=== PATIENT | female | born 1965 | race Caucasian/White ===

== ENCOUNTER 2021-06-10 14:07 | Inpatient (IN) | payer BC ==
[~2021-06-10] VITALS: Ht 149.9 cm; Wt 100.0 kg
[2021-06-10] MEDS ORDERED: acetaminophen 325mg tablet PO ONE (15:50)
[2021-06-10 16:32] LABS: BASOPHILS % (AUTO) 0.3 % (0-1); EOSINOPHILS % (AUTO) 0.1 % (0-6); HEMOGLOBIN 15.2 g/dl (12.0-16.0); LYMPHOCYTES # (AUTO) 1.1 X10'3 (1.1-4.8); LYMPHOCYTES % (AUTO) 13.1 % (21-51); MEAN CORPUSCULAR HEMOGLOBIN 28.8 PG (27.0-31.0); MEAN CORPUSCULAR HGB CONC 33.9 g/dL (33.0-36.5); MEAN CORPUSCULAR VOLUME 85.2 FL (78-98); MEAN PLATELET VOLUME 7.4 FL (7.4-10.4); MONOCYTES # (AUTO) 0.9 X10'3 (0-0.9); NEUTROPHILS # (AUTO) 6.3 X10'3 (1.8-7.7); NEUTROPHILS % (AUTO) 75.5 % (42-75); PLATELET COUNT 274 X10'3 (140-440); RED BLOOD COUNT 5.29 X10'6 (4.20-5.60); WHITE BLOOD COUNT 8.3 X10'3 (4.5-11.0)
[2021-06-10 16:45] LABS: D-DIMER 0.53 MG/L FEU (0-0.50)
[2021-06-10 16:54] LABS: ALANINE AMINOTRANSFERASE 25 U/L (12-78); ALBUMIN 3.2 G/DL (3.4-5.0); ALBUMIN/GLOBULIN RATIO 0.6 (1.1-1.5); ALKALINE PHOSPHATASE 111 IU/L (46-116); ANION GAP 8 (8-16); ASPARTATE AMINO TRANSFERASE 26 U/L (10-37); BILIRUBIN,TOTAL 0.6 MG/DL (0.1-1.0); BLOOD UREA NITROGEN 11 MG/DL (7-18); CALCIUM 8.4 MG/DL (8.5-10.1); CHLORIDE 102 MMOL/L (99-107); CREATININE 0.61 MG/DL (0.40-0.90); GLUCOSE 127 MG/DL (70-104); POTASSIUM 3.5 MMOL/L (3.5-5.1); SODIUM 139 MMOL/L (135-145); TOTAL CARBON DIOXIDE 28.7 MMOL/L (24-32); TOTAL PROTEIN 8.3 G/DL (6.4-8.2); eGFR > 90 ML/MIN
[2021-06-10 17:00] LABS: C-REACTIVE PROTEIN 5.57 MG/DL (0.0-0.5)
[2021-06-10 17:12] LABS: LACTATE DEHYDROGENASE 328 U/L (81-234)
[2021-06-10] MEDS ORDERED: REMDESIVIR INJ 200 MG in normal saline 100ml IV soln 60 ML IV ONE (18:10)
[2021-06-10] MEDS ORDERED: dexamethasone 4mg/ml inj IV ONE (18:45)
[2021-06-10] MEDS ORDERED: RAMI10CA69 PO (20:50)
[2021-06-10] MEDS ORDERED: PIOG30TA71 PO (20:50)
[2021-06-10] MEDS ORDERED: temazepam 15mg capsule PO PRN (21:00)
[2021-06-10] MEDS ORDERED: acetaminophen 650mg rectal suppository RC PRN (22:05)
[2021-06-10] MEDS ORDERED: diphenhydrAMINE 25mg capsule PO PRN (22:05)
[2021-06-10] MEDS ORDERED: HYDROcodone/acetaminophen 5mg/325mg tablet PO PRN (22:05)
[2021-06-10] MEDS ORDERED: bisacodyl 10mg suppository rectal RC PRN (22:05)
[2021-06-10] MEDS ORDERED: diphenhydrAMINE 50 mg/ml inj IV PRN (22:05)
[2021-06-10] MEDS ORDERED: morphine 2 MG/ML inj. syringe IV PRN ×2 (22:05)
[2021-06-10] MEDS ORDERED: magnesium hydroxide 30ml (MOM) UD suspension PO PRN (22:05)
[2021-06-10] MEDS ORDERED: normal saline 1000ml 1,000 ML IV SCH (22:05)
[2021-06-10] MEDS ORDERED: ondansetron/PF 4mg/2ml inj IV PRN (22:05)
[2021-06-10] MEDS ORDERED: ondansetron 4mg rapidly disintigrating tab PO PRN (22:05)
[2021-06-10] MEDS ORDERED: HYDROcodone/acetaminophen 10/325mg tab PO PRN (22:05)
[2021-06-10] MEDS ORDERED: acetaminophen 325mg tablet PO PRN ×2 (22:05)
[2021-06-10] MEDS ORDERED: mag hydrox/Alum hydrox/simeth 30ml oral suspension PO PRN (22:05)
[2021-06-10] MEDS ORDERED: HYDROmorphone inj. 0.5 MG/0.5 ML DISP.SYRIN IV PRN (22:05)
[2021-06-10] MEDS ORDERED: dextrose 50%-water 50ml dispensing syringe IV PRN ×2 (22:15)
[2021-06-10] MEDS ORDERED: ALBUTEROL INHALER 1 PUFF/90 MCG INHALER IH PRN (22:15)
[2021-06-10] MEDS ORDERED: dextrose ORAL solution 15 GM/59 ML bottle PO PRN ×2 (22:15)
[2021-06-10] MEDS ORDERED: MESSAGE TO PHARMACY PO ONE (22:15)
[2021-06-10] MEDS ORDERED: glucagon, human recombinant 1mg kit SUBCUT PRN (22:15)
[2021-06-10 22:43] LABS: CREATINE KINASE 89 U/L (26-192); LIPASE 89 U/L (73-393); MAGNESIUM 2.2 MG/DL (1.5-2.4); PHOSPHORUS 3.1 MG/DL (2.3-4.5); TROPONIN I < 0.04 NG/ML (0.0-0.05)
[2021-06-10] MEDS ORDERED: METF-436 PO (23:36)
[2021-06-10] MEDS ORDERED: ATOR20TA66 PO (23:36)
[2021-06-11 05:59] LABS: BASOPHILS % (AUTO) 0.4 % (0-1); EOSINOPHILS % (AUTO) 0 % (0-6); HEMATOCRIT 44.5 % (35.0-45.0); HEMOGLOBIN 14.7 g/dl (12.0-16.0); LYMPHOCYTES # (AUTO) 0.6 X10'3 (1.1-4.8); MEAN CORPUSCULAR HEMOGLOBIN 28.8 PG (27.0-31.0); MEAN CORPUSCULAR HGB CONC 33.1 g/dL (33.0-36.5); MEAN PLATELET VOLUME 7.5 FL (7.4-10.4); MONOCYTES # (AUTO) 0.2 X10'3 (0-0.9); MONOCYTES % (AUTO) 4.5 % (2-12); NEUTROPHILS # (AUTO) 3.7 X10'3 (1.8-7.7); NEUTROPHILS % (AUTO) 81.1 % (42-75); PLATELET COUNT 284 X10'3 (140-440); RED BLOOD COUNT 5.11 X10'6 (4.20-5.60); RED CELL DISTRIBUTION WIDTH 14.2 % (11.5-14.5); WHITE BLOOD COUNT 4.6 X10'3 (4.5-11.0)
[2021-06-11 06:04] LABS: PARTIAL THROMBOPLASTIN TIME 29 SECONDS (22-32)
[2021-06-11 06:08] LABS: ALANINE AMINOTRANSFERASE 17 U/L (12-78); ALBUMIN 2.6 G/DL (3.4-5.0); ALBUMIN/GLOBULIN RATIO 0.6 (1.1-1.5); ALKALINE PHOSPHATASE 95 IU/L (46-116); ANION GAP 11 (8-16); ASPARTATE AMINO TRANSFERASE 19 U/L (10-37); BILIRUBIN,TOTAL 0.5 MG/DL (0.1-1.0); BLOOD UREA NITROGEN 13 MG/DL (7-18); BUN/CREATININE RATIO 23.6 (6.6-38.0); CALCIUM 6.9 MG/DL (8.5-10.1); CHLORIDE 107 MMOL/L (99-107); CHOL/HDL RATIO 3.5 (0.00-4.99); CHOLESTEROL 128 MG/DL (0-200); CREATININE 0.55 MG/DL (0.40-0.90); GLUCOSE 152 MG/DL (70-104); HDL CHOLESTEROL 37 MG/DL (35-60); LDL CHOLESTEROL 77 MG/DL (50-100); POTASSIUM 3.6 MMOL/L (3.5-5.1); SODIUM 143 MMOL/L (135-145); TOTAL CARBON DIOXIDE 25.2 MMOL/L (24-32); TOTAL PROTEIN 6.9 G/DL (6.4-8.2); TRIGLYCERIDES 60 MG/DL (20-135); eGFR > 90 ML/MIN
[2021-06-11] MEDS ORDERED: CefTRIAXone/D5W-Rocephin 1gm 50 ML IV SCH (08:00)
[2021-06-11] MEDS: atorvastatin 20mg tablet PO SCH ×2 (08:00→21:58)
[2021-06-11] MEDS ORDERED: azithromycin/NS 500mg/250ml 250 ML IV SCH (08:00)
[2021-06-11] MEDS: DEXAMETHASONE 6 MG TABLET PO SCH ×2 (09:07→21:58)
[2021-06-11] MEDS: pantoprazole 40mg Tablet.DR PO SCH (09:07)
[2021-06-11] MEDS: docusate sod 100mg capsule PO SCH ×2 (09:07→20:00)
[2021-06-11] MEDS: lisinopril 20mg tablet PO SCH (09:08)
[2021-06-11] MEDS: enoxaparin 60mg/0.6ml syringe SUBCUT SCH ×2 (09:08→22:10)
[2021-06-11] MEDS ORDERED: REMDESIVIR INJ 100 MG in normal saline 100ml IV soln 80 ML IV SCH (10:00)
[2021-06-11] MEDS ORDERED: magnesium 4gm in 100ml NS 100 ML IV PRN (10:20)
[2021-06-11] MEDS ORDERED: potassium Cl 20 mEq SR tablet PO PRN ×2 (10:20)
[2021-06-11] MEDS ORDERED: potassium Cl 40MEQ/1/2NS 520ml 520 ML IV PRN (10:20)
[2021-06-11] MEDS ORDERED: magnesium Cl slow-release 64mg tablet PO PRN (10:20)
[2021-06-11] MEDS: insulin Lispro (HumaLOG) vial - multi-dose SQ SCH ×2 (14:27→22:00)
[2021-06-11] MEDS: K and/or MAG REPLACEMENT MC SCH (20:00)
[2021-06-11] MEDS: insulin glargine (Lantus) pen - multi-dose SQ SCH (22:05)
[2021-06-11 23:35] LABS: CLARITY,URINE SLIGHTLY CLOUDY (Clear); COLOR,URINE YELLOW (Yellow); GLUCOSE, URINE 500 mg/dl (Neg); KETONES,URINE 40 mg/dl (Neg); OCCULT BLOOD,URINE NEGATIVE (Neg); PROTEIN,URINE TRACE mg/dl (Neg); UA COLLECTION TYPE CLN CATCH MIDSTREAM
[2021-06-11 23:36] LABS: LEUKOCYTE ESTERASE ,URINE NEGATIVE (Neg); NITRITES, URINE NEGATIVE (Neg); UROBILINOGEN,URINE 0.2 E.U/dL (0.2-1.0)
[2021-06-11 23:37] LABS: BACTERIA,URINE NONE SEEN /HPF (Neg); RBC,URINE 0-2 /HPF (0-2); SQUAMOUS EPITHELIAL CELL,UR FEW /LPF (FEW); WBC,URINE 0-4 /HPF (0-4); YEAST MANY /HPF (NEGATIVE)
[2021-06-12] MEDS: REMDESIVIR INJ 100 MG in normal saline 100ml IV soln 80 ML IV SCH (07:27)
[2021-06-12 07:51] LABS: BASOPHILS # (AUTO) 0.1 X10'3 (0-0.2); BASOPHILS % (AUTO) 0.4 % (0-1); EOSINOPHILS % (AUTO) 0 % (0-6); HEMATOCRIT 44.9 % (35.0-45.0); HEMOGLOBIN 14.5 g/dl (12.0-16.0); LYMPHOCYTES % (AUTO) 7.3 % (21-51); MEAN CORPUSCULAR HEMOGLOBIN 28.7 PG (27.0-31.0); MEAN CORPUSCULAR HGB CONC 32.4 g/dL (33.0-36.5); MEAN CORPUSCULAR VOLUME 88.6 FL (78-98); MEAN PLATELET VOLUME 7.7 FL (7.4-10.4); MONOCYTES % (AUTO) 7.3 % (2-12); NEUTROPHILS # (AUTO) 11.4 X10'3 (1.8-7.7); PLATELET COUNT 281 X10'3 (140-440); RED BLOOD COUNT 5.06 X10'6 (4.20-5.60); RED CELL DISTRIBUTION WIDTH 14.1 % (11.5-14.5); WHITE BLOOD COUNT 13.4 X10'3 (4.5-11.0)
[2021-06-12] MEDS: docusate sod 100mg capsule PO SCH ×2 (07:59→21:37)
[2021-06-12] MEDS: pantoprazole 40mg Tablet.DR PO SCH (07:59)
[2021-06-12] MEDS: K and/or MAG REPLACEMENT MC SCH ×2 (08:00→20:00)
[2021-06-12] MEDS: lisinopril 20mg tablet PO SCH (08:00)
[2021-06-12 10:30] LABS: D-DIMER 0.39 MG/L FEU (0-0.50)
[2021-06-12 10:44] LABS: ALANINE AMINOTRANSFERASE 19 U/L (12-78); ALBUMIN 2.6 G/DL (3.4-5.0); ALBUMIN/GLOBULIN RATIO 0.6 (1.1-1.5); ALKALINE PHOSPHATASE 92 IU/L (46-116); ANION GAP 8 (8-16); ASPARTATE AMINO TRANSFERASE 18 U/L (10-37); BILIRUBIN,TOTAL 0.3 MG/DL (0.1-1.0); BLOOD UREA NITROGEN 16 MG/DL (7-18); BUN/CREATININE RATIO 23.5 (6.6-38.0); C-REACTIVE PROTEIN 2.65 MG/DL (0.0-0.5); CALCIUM 7.8 MG/DL (8.5-10.1); CHLORIDE 106 MMOL/L (99-107); CREATININE 0.68 MG/DL (0.40-0.90); GLUCOSE 243 MG/DL (70-104); MAGNESIUM 2.1 MG/DL (1.5-2.4); PHOSPHORUS 3.3 MG/DL (2.3-4.5); POTASSIUM 4.2 MMOL/L (3.5-5.1); SODIUM 144 MMOL/L (135-145); TOTAL CARBON DIOXIDE 30.2 MMOL/L (24-32); TOTAL PROTEIN 7.2 G/DL (6.4-8.2); eGFR 89 ML/MIN
[2021-06-12] MEDS: DEXAMETHASONE 6 MG TABLET PO SCH ×2 (10:47→21:37)
[2021-06-12] MEDS: enoxaparin 30mg/0.3ml syringe SUBCUT SCH ×2 (10:48→21:42)
[2021-06-12 10:51] LABS: LACTATE DEHYDROGENASE 478 U/L (81-234)
[2021-06-12] MEDS: insulin Lispro (HumaLOG) vial - multi-dose SQ SCH ×2 (14:13→19:45)
--- NOTE | 2021-06-12 15:53 | NUR ---
received report from aimee mtz in [place]
[2021-06-12 18:24] VITALS: BP 111/52
--- NOTE | 2021-06-12 18:24 | NUR ---
GAVE REPORT TO LEONARD NICHOLAS
[2021-06-12] MEDS: insulin glargine (Lantus) pen - multi-dose SQ SCH (21:35)
[2021-06-12 22:00] VITALS: BP 112/60
[2021-06-13 06:00] VITALS: BP 98/51
--- NOTE | 2021-06-13 06:45 | NUR ---
Problems reprioritized. Patient report given, questions answered & plan of care reviewed with LEONARD RODAS.
[2021-06-13 07:57] LABS: BASOPHILS % (AUTO) 0.1 % (0-1); EOSINOPHILS % (AUTO) 0 % (0-6); HEMATOCRIT 42.8 % (35.0-45.0); HEMOGLOBIN 14.1 g/dl (12.0-16.0); LYMPHOCYTES # (AUTO) 1.1 X10'3 (1.1-4.8); LYMPHOCYTES % (AUTO) 6.8 % (21-51); MEAN CORPUSCULAR HEMOGLOBIN 28.6 PG (27.0-31.0); MEAN CORPUSCULAR VOLUME 86.8 FL (78-98); MEAN PLATELET VOLUME 7.7 FL (7.4-10.4); MONOCYTES % (AUTO) 6.3 % (2-12); NEUTROPHILS # (AUTO) 14.1 X10'3 (1.8-7.7); NEUTROPHILS % (AUTO) 86.8 % (42-75); PLATELET COUNT 375 X10'3 (140-440); RED BLOOD COUNT 4.93 X10'6 (4.20-5.60); WHITE BLOOD COUNT 16.2 X10'3 (4.5-11.0)
[2021-06-13] MEDS: K and/or MAG REPLACEMENT MC SCH ×2 (08:00→20:00)
[2021-06-13] MEDS: lisinopril 20mg tablet PO SCH (08:00)
[2021-06-13 08:06] LABS: ALANINE AMINOTRANSFERASE 14 U/L (12-78); ALBUMIN 2.6 G/DL (3.4-5.0); ALBUMIN/GLOBULIN RATIO 0.6 (1.1-1.5); ALKALINE PHOSPHATASE 97 IU/L (46-116); ANION GAP 7 (8-16); ASPARTATE AMINO TRANSFERASE 13 U/L (10-37); BILIRUBIN,TOTAL 0.3 MG/DL (0.1-1.0); BLOOD UREA NITROGEN 19 MG/DL (7-18); BUN/CREATININE RATIO 26.4 (6.6-38.0); C-REACTIVE PROTEIN 1.38 MG/DL (0.0-0.5); CHLORIDE 111 MMOL/L (99-107); CREATININE 0.72 MG/DL (0.40-0.90); GLUCOSE 183 MG/DL (70-104); LACTATE DEHYDROGENASE 268 U/L (81-234); MAGNESIUM 2.5 MG/DL (1.5-2.4); PHOSPHORUS 4.2 MG/DL (2.3-4.5); POTASSIUM 3.7 MMOL/L (3.5-5.1); SODIUM 149 MMOL/L (135-145); TOTAL CARBON DIOXIDE 30.7 MMOL/L (24-32); TOTAL PROTEIN 6.9 G/DL (6.4-8.2); eGFR 83 ML/MIN
[2021-06-13 08:34] LABS: D-DIMER 0.25 MG/L FEU (0-0.50)
[2021-06-13] MEDS: pantoprazole 40mg Tablet.DR PO SCH (09:28)
[2021-06-13] MEDS: atorvastatin 20mg tablet PO SCH (09:29)
[2021-06-13] MEDS: docusate sod 100mg capsule PO SCH ×2 (09:29→20:00)
[2021-06-13] MEDS: DEXAMETHASONE 6 MG TABLET PO SCH ×2 (09:29→20:15)
[2021-06-13] MEDS: enoxaparin 30mg/0.3ml syringe SUBCUT SCH ×2 (09:30→20:16)
[2021-06-13] MEDS: insulin Lispro (HumaLOG) vial - multi-dose SQ SCH ×3 (09:39→20:13)
[2021-06-13] MEDS: REMDESIVIR INJ 100 MG in normal saline 100ml IV soln 80 ML IV SCH (09:41)
[2021-06-13 10:00] VITALS: BP 85/35
--- NOTE | 2021-06-13 10:39 | NUR ---
PAGER ID: [phone] MESSAGE: Pamela KIRKLAND [phone] COVID UNIT PT. BP 85/35 RECHECKED MANUALLY. HR MID 50S. LISINOPRIL HELD THIS AM. DO YOU WANT TO DC FOR NOW? FLUID BOLUS? ADRIANNA [id number]
[2021-06-13] MEDS ORDERED: normal saline 1000ml 1,000 ML IVB ONE (11:10)
--- NOTE | 2021-06-13 12:00 | NUR ---
DM Consult: Pt A1C 7.0 w/ hx T2DM admit DX COVID-19. DM ed deferred at this time until more appropriate this admit. Addendum: 06/13/21 at [address] Amended: Links added.
[2021-06-13 14:00] VITALS: BP 99/52
[2021-06-13 14:51] VITALS: BP 96/40
--- NOTE | 2021-06-13 18:45 | NUR ---
Care released to Thomas VALLE.
--- NOTE | 2021-06-13 19:00 | NUR ---
Patient in room [facility]TH[facility] 4015. I have received report from LEONARD Thompson and had the opportunity to ask questions and assume patient care.
[2021-06-13 22:00] VITALS: BP 122/68
[2021-06-13] MEDS: insulin glargine (Lantus) pen - multi-dose SQ SCH (22:14)
[2021-06-14 03:08] VITALS: BP 107/72
[2021-06-14 06:00] VITALS: BP 134/84
--- NOTE | 2021-06-14 07:07 | NUR ---
Problems reprioritized. Patient report given, questions answered & plan of care reviewed with LEONARD Joseph.
--- NOTE | 2021-06-14 07:14 | NUR ---
Patient in room [facility]TH[facility] 4015. I have received report from LEONARD AGUILAR, and had the opportunity to ask questions and assume patient care.
[2021-06-14] MEDS: K and/or MAG REPLACEMENT MC SCH ×2 (08:00→19:47)
[2021-06-14 08:29] LABS: BASOPHILS % (AUTO) 0.3 % (0-1); EOSINOPHILS % (AUTO) 0 % (0-6); HEMATOCRIT 43.9 % (35.0-45.0); HEMOGLOBIN 14.3 g/dl (12.0-16.0); LYMPHOCYTES # (AUTO) 1.2 X10'3 (1.1-4.8); LYMPHOCYTES % (AUTO) 11.3 % (21-51); MEAN CORPUSCULAR HEMOGLOBIN 28.4 PG (27.0-31.0); MEAN CORPUSCULAR HGB CONC 32.6 g/dL (33.0-36.5); MEAN CORPUSCULAR VOLUME 87.2 FL (78-98); MEAN PLATELET VOLUME 7.9 FL (7.4-10.4); MONOCYTES # (AUTO) 0.9 X10'3 (0-0.9); MONOCYTES % (AUTO) 8.6 % (2-12); NEUTROPHILS # (AUTO) 8.6 X10'3 (1.8-7.7); NEUTROPHILS % (AUTO) 79.8 % (42-75); PLATELET COUNT 392 X10'3 (140-440); RED BLOOD COUNT 5.03 X10'6 (4.20-5.60); RED CELL DISTRIBUTION WIDTH 14.1 % (11.5-14.5); WHITE BLOOD COUNT 10.7 X10'3 (4.5-11.0)
[2021-06-14 08:53] LABS: D-DIMER 0.27 MG/L FEU (0-0.50)
[2021-06-14 09:00] LABS: ALANINE AMINOTRANSFERASE 41 U/L (12-78); ALBUMIN 2.5 G/DL (3.4-5.0); ALBUMIN/GLOBULIN RATIO 0.6 (1.1-1.5); ALKALINE PHOSPHATASE 91 IU/L (46-116); ANION GAP 8 (8-16); ASPARTATE AMINO TRANSFERASE 37 U/L (10-37); BILIRUBIN,TOTAL 0.2 MG/DL (0.1-1.0); BLOOD UREA NITROGEN 17 MG/DL (7-18); BUN/CREATININE RATIO 30.9 (6.6-38.0); C-REACTIVE PROTEIN 0.69 MG/DL (0.0-0.5); CALCIUM 7.8 MG/DL (8.5-10.1); CHLORIDE 109 MMOL/L (99-107); CREATININE 0.55 MG/DL (0.40-0.90); GLUCOSE 140 MG/DL (70-104); LACTATE DEHYDROGENASE 243 U/L (81-234); MAGNESIUM 2.4 MG/DL (1.5-2.4); POTASSIUM 3.5 MMOL/L (3.5-5.1); SODIUM 148 MMOL/L (135-145); TOTAL PROTEIN 6.6 G/DL (6.4-8.2); eGFR > 90 ML/MIN
[2021-06-14] MEDS: insulin Lispro (HumaLOG) vial - multi-dose SQ SCH ×4 (09:24→22:00)
[2021-06-14] MEDS: enoxaparin 30mg/0.3ml syringe SUBCUT SCH ×2 (09:26→19:46)
[2021-06-14] MEDS: pantoprazole 40mg Tablet.DR PO SCH (09:27)
[2021-06-14] MEDS: REMDESIVIR INJ 100 MG in normal saline 100ml IV soln 80 ML IV SCH (09:27)
[2021-06-14] MEDS: DEXAMETHASONE 6 MG TABLET PO SCH ×2 (09:28→19:44)
[2021-06-14] MEDS: atorvastatin 20mg tablet PO SCH (09:28)
[2021-06-14] MEDS: docusate sod 100mg capsule PO SCH ×2 (09:28→19:44)
--- NOTE | 2021-06-14 09:43 | NUR ---
Initial: Pt admit for respiratory failure and COVID PNA. Currently on a CHO controlled diet and eating well with average 75% PO intake. LBM 06/13. No nutrition intervention implemented at this time. Will continue to follow. Recommendations: 1) Continue CHO controlled diet 2) Monitor need for additional protein/ONS 3) Routine bowel care 4) Scaled weight this admit; weekly scaled weights thereafter Addendum: 06/14/21 at [address] Amended: Links added.
[2021-06-14 10:00] VITALS: BP 117/58
[2021-06-14 14:00] VITALS: BP 127/64
[2021-06-14 18:00] VITALS: BP 113/63
--- NOTE | 2021-06-14 18:28 | NUR ---
Problems reprioritized. Patient report given, questions answered & plan of care reviewed with LEONARD JOHNSON.
--- NOTE | 2021-06-14 18:44 | NUR ---
Patient in room [facility]TH[facility] 4015. I have received report from Opla VALLE and had the opportunity to ask questions and assume patient care.
[2021-06-14] MEDS: insulin glargine (Lantus) pen - multi-dose SQ SCH (21:59)
[2021-06-14 22:00] VITALS: BP 113/53
[2021-06-15 02:00] VITALS: BP 142/72
[2021-06-15 06:00] VITALS: BP 148/85
--- NOTE | 2021-06-15 06:40 | NUR ---
Patient in room [facility]TH[facility] 4015. I have received report from LEONARD Jacobo and had the opportunity to ask questions and assume patient care.
--- NOTE | 2021-06-15 06:54 | NUR ---
Problems reprioritized. Patient report given, questions answered & plan of care reviewed with Elyse RN.
[2021-06-15 07:27] LABS: BASOPHILS % (AUTO) 0.2 % (0-1); EOSINOPHILS % (AUTO) 0 % (0-6); HEMATOCRIT 46.8 % (35.0-45.0); HEMOGLOBIN 15.3 g/dl (12.0-16.0); LYMPHOCYTES # (AUTO) 1.4 X10'3 (1.1-4.8); LYMPHOCYTES % (AUTO) 11.8 % (21-51); MEAN CORPUSCULAR HEMOGLOBIN 28.3 PG (27.0-31.0); MEAN CORPUSCULAR HGB CONC 32.7 g/dL (33.0-36.5); MEAN CORPUSCULAR VOLUME 86.4 FL (78-98); MEAN PLATELET VOLUME 7.5 FL (7.4-10.4); MONOCYTES # (AUTO) 0.8 X10'3 (0-0.9); MONOCYTES % (AUTO) 6.9 % (2-12); NEUTROPHILS # (AUTO) 9.6 X10'3 (1.8-7.7); NEUTROPHILS % (AUTO) 81.1 % (42-75); PLATELET COUNT 405 X10'3 (140-440); RED BLOOD COUNT 5.41 X10'6 (4.20-5.60); WHITE BLOOD COUNT 11.8 X10'3 (4.5-11.0)
[2021-06-15 07:49] LABS: D-DIMER 0.31 MG/L FEU (0-0.50)
[2021-06-15 07:51] LABS: ALANINE AMINOTRANSFERASE 59 U/L (12-78); ALBUMIN 2.6 G/DL (3.4-5.0); ALBUMIN/GLOBULIN RATIO 0.6 (1.1-1.5); ALKALINE PHOSPHATASE 98 IU/L (46-116); ANION GAP 6 (8-16); ASPARTATE AMINO TRANSFERASE 42 U/L (10-37); BILIRUBIN,TOTAL 0.3 MG/DL (0.1-1.0); BLOOD UREA NITROGEN 16 MG/DL (7-18); BUN/CREATININE RATIO 23.2 (6.6-38.0); C-REACTIVE PROTEIN 0.39 MG/DL (0.0-0.5); CALCIUM 7.9 MG/DL (8.5-10.1); CHLORIDE 110 MMOL/L (99-107); CREATININE 0.69 MG/DL (0.40-0.90); GLUCOSE 158 MG/DL (70-104); LACTATE DEHYDROGENASE 311 U/L (81-234); MAGNESIUM 2.3 MG/DL (1.5-2.4); PHOSPHORUS 3.8 MG/DL (2.3-4.5); POTASSIUM 4.8 MMOL/L (3.5-5.1); SODIUM 146 MMOL/L (135-145); TOTAL CARBON DIOXIDE 29.9 MMOL/L (24-32); TOTAL PROTEIN 6.8 G/DL (6.4-8.2); eGFR 87 ML/MIN
[2021-06-15] MEDS: K and/or MAG REPLACEMENT MC SCH ×2 (08:00→19:48)
[2021-06-15] MEDS: pantoprazole 40mg Tablet.DR PO SCH (08:42)
[2021-06-15] MEDS: enoxaparin 30mg/0.3ml syringe SUBCUT SCH ×2 (08:42→19:47)
[2021-06-15] MEDS: REMDESIVIR INJ 100 MG in normal saline 100ml IV soln 80 ML IV SCH (08:42)
[2021-06-15] MEDS: DEXAMETHASONE 6 MG TABLET PO SCH ×2 (08:43→19:46)
[2021-06-15] MEDS: atorvastatin 20mg tablet PO SCH (08:43)
[2021-06-15] MEDS: docusate sod 100mg capsule PO SCH ×2 (08:43→19:46)
[2021-06-15] MEDS: insulin Lispro (HumaLOG) vial - multi-dose SQ SCH ×3 (08:54→18:49)
[2021-06-15 10:00] VITALS: BP 116/59
[2021-06-15 14:00] VITALS: BP 95/49
[2021-06-15 18:00] VITALS: BP 99/64
--- NOTE | 2021-06-15 18:05 | NUR ---
Problems reprioritized. Patient report given, questions answered & plan of care reviewed with LEONARD Jacobo.
--- NOTE | 2021-06-15 18:25 | NUR ---
Patient in room [facility]TH[facility] 4015. I have received report from Elyse VALLE and had the opportunity to ask questions and assume patient care.
[2021-06-15] MEDS: insulin glargine (Lantus) pen - multi-dose SQ SCH (21:26)
[2021-06-15 22:00] VITALS: BP 125/68
[2021-06-16 02:00] VITALS: BP 127/71
[2021-06-16 06:00] VITALS: BP 137/72
--- NOTE | 2021-06-16 06:35 | NUR ---
Problems reprioritized. Patient report given, questions answered & plan of care reviewed with Ximena VALLE.
--- NOTE | 2021-06-16 06:44 | NUR ---
Patient in room [facility]TH[facility] 4015. I have received report from LEONARD Jacobo and had the opportunity to ask questions and assume patient care.
[2021-06-16] MEDS: K and/or MAG REPLACEMENT MC SCH (08:00)
[2021-06-16 08:04] LABS: D-DIMER 0.34 MG/L FEU (0-0.50)
[2021-06-16 08:11] LABS: C-REACTIVE PROTEIN 0.21 MG/DL (0.0-0.5); LACTATE DEHYDROGENASE 694 U/L (81-234); MAGNESIUM 2.4 MG/DL (1.5-2.4); PHOSPHORUS 4.3 MG/DL (2.3-4.5)
[2021-06-16] MEDS: enoxaparin 30mg/0.3ml syringe SUBCUT SCH (09:02)
[2021-06-16] MEDS: DEXAMETHASONE 6 MG TABLET PO SCH (09:02)
[2021-06-16] MEDS: docusate sod 100mg capsule PO SCH (09:02)
[2021-06-16] MEDS: atorvastatin 20mg tablet PO SCH (09:02)
[2021-06-16] MEDS: pantoprazole 40mg Tablet.DR PO SCH (09:02)
[2021-06-16] MEDS: insulin Lispro (HumaLOG) vial - multi-dose SQ SCH ×2 (09:05→13:37)
[2021-06-16 10:00] VITALS: BP 100/53
[2021-06-16 10:15] LABS: BASOPHILS % (AUTO) 0.2 % (0-1); EOSINOPHILS % (AUTO) 0 % (0-6); HEMATOCRIT 47.9 % (35.0-45.0); HEMOGLOBIN 15.7 g/dl (12.0-16.0); LYMPHOCYTES # (AUTO) 1.8 X10'3 (1.1-4.8); LYMPHOCYTES % (AUTO) 12.7 % (21-51); MEAN CORPUSCULAR HEMOGLOBIN 28.3 PG (27.0-31.0); MEAN CORPUSCULAR HGB CONC 32.8 g/dL (33.0-36.5); MEAN CORPUSCULAR VOLUME 86.3 FL (78-98); MEAN PLATELET VOLUME 7.9 FL (7.4-10.4); MONOCYTES # (AUTO) 0.9 X10'3 (0-0.9); MONOCYTES % (AUTO) 6.6 % (2-12); NEUTROPHILS # (AUTO) 11.1 X10'3 (1.8-7.7); NEUTROPHILS % (AUTO) 80.5 % (42-75); PLATELET COUNT 462 X10'3 (140-440); RED BLOOD COUNT 5.55 X10'6 (4.20-5.60); RED CELL DISTRIBUTION WIDTH 13.9 % (11.5-14.5); WHITE BLOOD COUNT 13.8 X10'3 (4.5-11.0)
[2021-06-16 10:31] LABS: ALANINE AMINOTRANSFERASE 99 U/L (12-78); ALBUMIN 2.6 G/DL (3.4-5.0); ALBUMIN/GLOBULIN RATIO 0.6 (1.1-1.5); ALKALINE PHOSPHATASE 94 IU/L (46-116); ANION GAP 12 (8-16); ASPARTATE AMINO TRANSFERASE 65 U/L (10-37); BILIRUBIN,TOTAL 0.3 MG/DL (0.1-1.0); BLOOD UREA NITROGEN 17 MG/DL (7-18); BUN/CREATININE RATIO 26.2 (6.6-38.0); CALCIUM 8.3 MG/DL (8.5-10.1); CHLORIDE 105 MMOL/L (99-107); CREATININE 0.65 MG/DL (0.40-0.90); GLUCOSE 113 MG/DL (70-104); POTASSIUM 4.1 MMOL/L (3.5-5.1); SODIUM 146 MMOL/L (135-145); TOTAL CARBON DIOXIDE 29.3 MMOL/L (24-32); TOTAL PROTEIN 6.9 G/DL (6.4-8.2); eGFR > 90 ML/MIN
[2021-06-16 10:39] LABS: PLATELET ESTIMATE INCREASED; TOTAL CELLS COUNTED 100
--- NOTE | 2021-06-16 12:03 | NUR ---
O2 Sat at rest on room air:_89__% If below 89%: Recovery O2 Sat at rest on ___LPM:___%:___% via (mask/nasal cannula, etc..) No further documentation is necessary. If O2 Sat did not drop below 89% on room air,ambulate patient on room air. O2 Sat while ambulating on room air:_86__% Recovery O2 Sat while ambulating on _2__LPM:_92__% No further documentation is necessary. If patient does not drop below 89% while ambulating, he/she does not qualify for home O2.
[2021-06-16 14:00] VITALS: BP 100/62
[2021-06-16] MEDS ORDERED: DEC1T PO (14:05)
[2021-06-16] MEDS ORDERED: PANT40TA54 PO (14:05)
[2021-06-16] MEDS ORDERED: ASPI-611 PO (14:05)
[2021-06-16] MEDS ORDERED: ALBU6.7H9 IH (14:05)
[2021-06-16] MEDS ORDERED: BENZ-16 PO (14:05)
--- NOTE | 2021-06-16 15:15 | NUR ---
DC home with portable O2 instructed on use and follow up. Pt verbalizes understanding.
== END 2021-06-16 15:15 | disposition home or self-care (01) | DRG 177 ==
LOC: ER 14:08 → ED HOLD 22:10 → EDBEDREQSVC 06-12 15:28 → ORTHO 4S 06-12 17:50
PROVIDERS: ADMIT Family Medicine; ATTEND Family Medicine
PROC: XW033E5 Introduction of Remdesivir Anti-infective into Peripheral Vein, Percutaneous Approach, New Technology Group 5 (ICD-10-PCS; principal; 2021-06-10)
DX: U07.1 COVID-19 (principal); J12.82 Pneumonia due to coronavirus disease 2019; J96.01 Acute respiratory failure with hypoxia; Z68.41 Body mass index [BMI] 40.0-44.9, adult; E11.65 Type 2 diabetes mellitus with hyperglycemia; E66.01 Morbid (severe) obesity due to excess calories; E78.00 Pure hypercholesterolemia, unspecified; E78.5 Hyperlipidemia, unspecified; I10 Essential (primary) hypertension; J42 Unspecified chronic bronchitis; Z79.899 Other long term (current) drug therapy; Z79.84 Long term (current) use of oral hypoglycemic drugs
CPT/HCPCS: 36415; 71045; 80053; 80061; 81001; 82550; 82948; 83036; 83615; 83690; 83735; 83880; 84100; 84145; 84443; 84484; 85007; 85025; 85379; 85610; 85730; 86140; 87081; 87635; 93005; 94760; 96365; 96366; 96375; 99285; C9803; G0378; J0456; J0696; J1100; J1650; J1815; J7030; J8540

== ENCOUNTER 2025-01-13 19:54 | Emergency (ER) | payer BC ==
[~2025-01-13] VITALS: Ht 147.3 cm; Wt 87.7 kg
[~2025-01-13 19:54] MED LIST: ALBU6.7H14 IH; ATOR20TA66 PO; BENZ-16 PO; DEC1T PO; METF-436 PO; PANT40TA54 PO; PIOG30TA71 PO; RAMI10CA78 PO
[2025-01-13 21:06] VITALS: TEMP 97.6
[2025-01-13 22:06] LABS: BASOPHILS # (AUTO) 0.1 X10'3 (0-0.2); BASOPHILS % (AUTO) 0.9 % (0-1); EOSINOPHILS # (AUTO) 0.2 X10'3 (0-0.9); EOSINOPHILS % (AUTO) 2.6 % (0-6); HEMATOCRIT 47.6 % (35.0-45.0); HEMOGLOBIN 15.8 g/dl (12.0-16.0); LYMPHOCYTES # (AUTO) 2.1 X10'3 (1.1-4.8); LYMPHOCYTES % (AUTO) 21.7 % (21-51); MEAN CORPUSCULAR HEMOGLOBIN 28.7 PG (27.0-31.0); MEAN CORPUSCULAR HGB CONC 33.2 g/dL (33.0-36.5); MEAN CORPUSCULAR VOLUME 86.4 FL (78-98); MONOCYTES # (AUTO) 0.8 X10'3 (0-0.9); MONOCYTES % (AUTO) 7.9 % (2-12); NEUTROPHILS # (AUTO) 6.4 X10'3 (1.8-7.7); NEUTROPHILS % (AUTO) 66.9 % (42-75); PLATELET COUNT 348 X10'3 (140-440); RED BLOOD COUNT 5.51 X10'6 (4.20-5.60); RED CELL DISTRIBUTION WIDTH 14.6 % (11.5-14.5); WHITE BLOOD COUNT 9.6 X10'3 (4.5-11.0)
[2025-01-13 22:16] LABS: ALBUMIN 3.8 G/DL (3.4-5.0); ANION GAP 9 (8-16); BLOOD UREA NITROGEN 10 MG/DL (7-18); BUN/CREATININE RATIO 17.9 (10.0-20.0); CHLORIDE 105 MMOL/L (99-107); CREATININE 0.56 MG/DL (0.40-0.90); GLUCOSE 152 MG/DL (70-104); POTASSIUM 3.5 MMOL/L (3.5-5.1); SODIUM 142 MMOL/L (135-145); TOTAL CARBON DIOXIDE 28.2 MMOL/L (24-32); eCRCL 68 ML/MIN; eGFR > 90 ML/MIN
[2025-01-13] MEDS ORDERED: iohexol 350 MG/ML 50ML vial IV ONE (22:21)
[2025-01-13] MEDS ORDERED: iohexol 300 MG/1 ML 50ml polymer ONE (22:22)
[2025-01-13] MEDS ORDERED: iohexol 300mg/ml 100ml inj. ONE (22:22)
[2025-01-13 23:16] VITALS: BP 140/76; PULSE 83; RESP 16; O2SAT 96
== END 2025-01-13 23:28 | disposition home or self-care (01) ==
LOC: ER 19:55
DX: R06.02 Shortness of breath (principal); E11.9 Type 2 diabetes mellitus without complications; E78.00 Pure hypercholesterolemia, unspecified; I10 Essential (primary) hypertension
CPT/HCPCS: 36415; 70491; 71260; 80048; 85025; 99285; Q9967

== ENCOUNTER 2025-02-07 08:51 | Day surgery (SDC) | payer BC ==
[~2025-02-07] VITALS: Ht 147.3 cm; Wt 100.0 kg
[~2025-02-07 08:51] MED LIST changes: -ALBU6.7H14 IH; -BENZ-16 PO; -DEC1T PO; +EMPA25TA PO; -METF-436 PO; -PANT40TA54 PO; +PROM473S4 PO
[2025-02-07 09:05] VITALS: BP 150/80; PULSE 65; RESP 21
[2025-02-07] MEDS ORDERED: fentaNYL/PF 50MCG/1 ML 2ML syringe ONE (09:17)
[2025-02-07] MEDS ORDERED: LIDOcaine 2% Viscous 15ml cup ONE (09:17)
[2025-02-07] MEDS ORDERED: MIDAZolam 1 MG/ML 5ML VIAL ONE (09:17)
[2025-02-07 09:45] VITALS: BP 129/61; PULSE 74; RESP 20; O2SAT 91
[2025-02-07 09:55] VITALS: BP 119/60; PULSE 69; RESP 18; O2SAT 90
[2025-02-07 10:05] VITALS: BP 100/53; PULSE 69; RESP 20; O2SAT 91
[2025-02-07 10:15] VITALS: BP 100/51; PULSE 63; RESP 19; O2SAT 92
--- NOTE | 2025-02-08 17:15 | PATHOLOGY REPORT ---
[facility] [address] [place] [address] SURGICAL PATHOLOGY REPORT CaseNumber: [id number] Surgeon:Beltran Moore M.D. CLINICAL INFORMATION CLINICAL INFORMATION: Dysphagia. Dyspepsia. DIAGNOSIS DIAGNOSIS: A.STOMACH; BIOPSY - MINIMAL CHRONIC GASTRITIS. - IMMUNOHISTOCHEMICAL STAIN NEGATIVE FOR HELICOBACTER PYLORI. - ABUNDANT BENIGN MUSCULARIS PROPRIA PRESENT WITHIN SPECIMEN. - SEE COMMENT. DIAGNOSIS: B.GASTROESOPHAGUS JUNCTION; BIOPSY - GASTROESOPHAGEAL JUNCTION MUCOSA WITH SQUAMOUS-BEARING ESOPHAGEAL MUCOSA WITH MILD ACANTHOSIS AND GASTRIC CARDIAC MUCOSA WITH MINIMAL CHRONIC GASTRITIS. - NEGATIVE FOR ACTIVE GASTROESOPHAGEAL REFLUX DISEASE, INTESTINAL METAPLASIA, DYSPLASIA, AND MA LIGNANCY. COMMENT NOTE: The smooth muscle myocytes may be secondary to a generous sampling vs. a possible leiomyoma. Re commend correlation with ongoing clinical history and other studies if available. There is no evidenc e of atypia or malignancy within the specimen. NOTE: The smooth muscle myocytes may be secondary to a generous sampling vs. a possible leiomyoma. Re commend correlation with ongoing clinical history and other studies if available. There is no evidenc e of atypia or malignancy within the specimen. MICROSCOPIC DESCRIPTION A. STOMACH MICROSCOPIC DESCRIPTION: Microscopic examination is performed on one H&E stained slide. Present is ga stric mucosa with minimal chronic inflammation including small benign lymphoid aggregates. Acute infl ammation and ulcer are not identified. There is no evidence of dysplasia or malignancy. A histochemic al stain for intestinal metaplasia (Alcian blue) is completed and is negative. An immunohistochemical stain for Helicobacter pylori is completed and is negative. Also present within the specimen is abun dant muscularis propria. There is no evidence of atypia. B. GASTROESOPHAGUS JUNCTION MICROSCOPIC DESCRIPTION: Microscopic examination is performed on one H&E stained slide. Present is ga stroesophageal junction mucosa with mildly acanthotic squamous-bearing esophageal mucosa without eosi nophils. In addition, there is gastric cardiac mucosa with a minimal chronic inflammatory infiltrate within the lamina propria. There is no evidence of viral effect, dysplasia, or malignancy. A histoche mical stain for intestinal metaplasia/fungus (Alcian blue/PAS) is completed and is negative. Abundant benign muscularis propria is also present within the specimen. (bb) GROSS DESCRIPTION A. STOMACH GROSS DESCRIPTION: Received in a container of formalin labeled with the patients name, number, and "g astric BX" are multiple pieces of nicole tissue 0.1-0.5 x 0.1 x 0.1 cm. The specimen is entirely submitt ed as A1. The time at which the specimen was removed was 1040. The time at which the specimen was pl aced in formalin was 1041. B. GASTROESOPHAGUS JUNCTION GROSS DESCRIPTION: Received in a container of formalin labeled with the patient's name, number, and " GE junction BX" are 3 pieces of nicole tissue 0.2-0.4 x 0.2 x 0.1 cm. The specimen is entirely submitted as B1. The time at which the specimen was removed was 1041. The time at which the specimen was place d in formalin was 1041. Electronically signed by: Rico Badillo D.O. 02/08/2025 4:48:00 PM
== END 2025-02-07 10:32 | disposition home or self-care (01) ==
LOC: GI LAB 08:51
PROVIDERS: ATTEND Internal Medicine Gastroenterology
DX: R13.10 Dysphagia, unspecified (principal); K21.00 Gastro-esophageal reflux disease with esophagitis, without bleeding; K31.89 Other diseases of stomach and duodenum; K29.50 Unspecified chronic gastritis without bleeding; Z79.899 Other long term (current) drug therapy
CPT/HCPCS: 43239; 99152; J2250; J3010; J7030; Z7512; A4620